=== PATIENT | male | born 1990 | race Hispanic/Latino ===

== ENCOUNTER 2019-10-03 19:49 | Emergency (ER) | payer SELFPAY ==
[2019-10-03] MEDS ORDERED: Ondansetron ODT 4 MG TAB ONE (20:29)
[2019-10-03] MEDS ORDERED: Ketorolac Tromethamine 30 MG/ML VIAL ONE (21:02)
[2019-10-03 21:20] LABS: #Basophils 0.1 thou/uL (0.0-0.2); #Eosinphils 0.1 thou/uL (0.0-0.7); #Lymphocytes 1.8 thou/uL (1.20-3.40); #Neutrophils 10.4 thou/uL (1.40-6.50); %Basophils 0.4 % (0.0-1.0); %Eosinophils 0.7 % (0.0-10.0); %Lymphocytes 13.7 % (21.0-51.0); %Monocytes 7.3 % (0.0-10.0); %Neutrophils 77.9 % (42.0-75.0); Hemoglobin 15.4 g/dL (14.0-18.0); Mean Corpuscular HGB CONC 33.5 g/dL (32.0-36.0); Mean Corpuscular Hemoglobin 30.9 pg (27.0-31.0); Mean Corpuscular Volume 92.2 fL (78.0-98.0); Mean Platelet Volume 8.1 fL (7.4-10.4); Platelet Count 285 thou/uL (130-400); RBC Distribution Width 10.9 % (11.5-14.5); Red Blood Cell (RBC) Count 4.98 mill/uL (4.70-6.10); White Blood Cell (WBC) Count 13.3 thou/uL (4.8-10.8)
--- NOTE | 2019-10-03 21:28 | RAD ---
PA AND LATERAL CHEST: HISTORY: Headache. Congestion. Syncope. FINDINGS: The heart size is normal. No lobar consolidation, pneumothoraces or pleural effusions are seen. No ac al osseous abnormalities are noted. IMPRESSION: No acute process. POS: OFF
[2019-10-03 21:42] LABS: ALT (SGPT) 25 U/L (8-55); AST (SGOT) 32 U/L (5-34); Alkaline Phosphatase 101 U/L (40-110); Anion Gap 12 mmol/L (10-20); BUN (Urea Nitrogen) 12 mg/dL (8.9-20.6); Bilirubin, Total 0.2 mg/dL (0.2-1.2); Calc. Creatinine Clearance 0 mL/min (70-130); Calcium 9.3 mg/dL (7.8-10.44); Carbon Dioxide 25 mmol/L (22-29); Chloride 107 mmol/L (98-107); Estimated GFR-MDRD 86; Globulin 3.5 g/dL (2.4-3.5); Glucose 128 mg/dL (70-105); Potassium 3.1 mmol/L (3.5-5.1); Protein, Total 7.5 g/dL (6.0-8.3); Sodium 141 mmol/L (136-145)
== END 2019-10-03 22:57 | disposition home or self-care (01) ==
LOC: ERS 19:49
DX: B34.9 Viral infection, unspecified (principal)
CPT/HCPCS: 71046; 80053; 84484; 85025; 87804; 93005; 96360; 96361; 96374; J1885; Q0162